=== PATIENT | male | born 2000 | race Caucasian/White ===

== ENCOUNTER 2024-03-22 19:52 | Emergency (ER) | payer OTHER, SELFPAY ==
[2024-03-22] VITALS (10 sets, daily range): BP systolic 120–155; BP diastolic 70–99; PULSE 81–115; RESP 16–18; TEMP 36.6; O2SAT 97–100; BMI 25.4
--- NOTE | 2024-03-22 20:06 | EDS_ITS ---
HPI History of Present Illness Chief Complaint: Lower Extremity Injury PFSH PFS Medical History no medical history Home Medications ?Medication ?Instructions ?Recorded ?Last Taken ?Type NK 03/22/24 Unknown History Allergy/AdvReac Type Severity Reaction Status Date / Time No Known Allergies Allergy Verified 03/22/24 19:53 Surgical History no surgical history Social History Smoking Status: Former smoker EXAM Physical Exam Const Vital Signs: 03/22/24 19:53 Temperature 97.8 F Temperature Source Oral Pulse Rate 81 Respiratory Rate 16 Blood Pressure 133/76 H Blood Pressure Mean 95 Pulse Ox 98 Oxygen Delivery Method Room Air Discharge Plan Triage Chief Complaint: Lower Extremity Injury ED Provider: Yaya Krause Dx/Rx/DC Orders Prescriptions: No Action NK Primary Care Provider: Care Physician,No Primary Referrals: Care Physician,No Primary [Primary Care Provider] - Print Language: Armenian
--- NOTE | 2024-03-22 20:15 | RAD_ITS ---
STUDY: X-RAY - RIGHT ANKLE REASON FOR EXAM: Male, 23 years old. FALL TECHNIQUE: 2 view(s) of the ankle. COMPARISON: None. FINDINGS: There is acute fracture of the medial malleolus of the distal tibia with displacement of 2.1 cm. There is acute comminuted fracture of the distal shaft of the fibula. There is widening of the tibiofibular syndesmosis. Normal visualized talus and calcaneus. The visualized subtalar, talonavicular, calcaneocuboid and tarsal articulations are normal. The soft tissue structures are unremarkable. RAD/Ankle min 3 Views IMPRESSION: Tibia and fibula fractures. Electronically Signed: Tevin Rincon MD at 21:04 EDT ,
--- NOTE | 2024-03-22 20:44 | EX.ED.DYSGE1 ---
HPI History of Present Illness Chief Complaint: Lower Extremity Injury Narrative Narrative: Chief complaint and HPI: 23-year-old male presents for evaluation of right ankle injury. Injury was prior to arrival. Patient states that he does not remember exactly what happened but he states that he was playing volleyball and landed wrong on his right ankle. Immediately had pain and deformity. He denies any blood thinners. Denies any his head. No LOC. Denies any numbness or tingling. Denies pain in any other extremity or body part. Denies any chest pain, shortness of breath, abdominal pain, nausea, vomiting. Review of systems: See HPI Medications: As listed on the chart Allergies: As listed on the chart PFSH: Per chart Vital signs: As listed on the chart. Reviewed. Physical exam: Gen: A&O x3, NAD Head: Normocephalic, atraumatic Eyes: No sclera icterus, conjunctiva clear ENT: Moist mucous membranes Neck: Trachea midline, full range of motion CV: Regular rate Resp: Nonlabored respiration Musc: Full ROM of all extremities except the right lower extremity secondary to pain, obvious deformity to the right ankle with bruising and ecchymosis, sensation intact, good capillary refill, PT/DP pulses plus 2 out of 4 bilaterally Skin: Warm, dry Neuro: Alert, oriented, grossly intact, sensation intact Psych: Cooperative, appropriate mood and affect PFS PFS Medical History no medical history Home Medications ?Medication ?Instructions ?Recorded ?Last Taken ?Type ondansetron 4 mg disintegrating 4 mg PO TID PRN nausea and 03/23/24 Unknown Rx tablet vomiting #21 tabs oxycodone-acetaminophen 5 mg-325 1 tab PO Q6H PRN pain 5 days #20 03/23/24 Unknown Rx mg tablet (Percocet) tabs Allergy/AdvReac Type Severity Reaction Status Date / Time No Known Allergies Allergy Verified 03/22/24 19:53 Surgical History no surgical history Social History Smoking Status: Former smoker EXAM Physical Exam Const Vital Signs: 03/22/24 19:53 03/22/24 20:53 03/22/24 21:00 Temperature 97.8 F Temperature Source Oral Pulse Rate 81 103 H 86 Pulse Rate [1 (Initial Baseline)] Pulse Rate [2] Pulse Rate [3] Respiratory Rate 16 18 18 Respiratory Rate [1 (Initial Baseline)] Respiratory Rate [2] Respiratory Rate [3] Blood Pressure 133/76 H 127/99 H 123/70 H Blood Pressure [1 (Initial Baseline)] Blood Pressure [3] Blood Pressure Mean 95 108 87 Pulse Ox 98 99 98 Oxygen Delivery Method Room Air Room Air Room Air Oxygen Delivery Method [1 (Initial Baseline)] Oxygen Delivery Method [2] Oxygen Delivery Method [3] EtCo2 (Normal 35-45 , high quality CPR 10-20 & ROSC>/=40mmHg EtCo2 (Normal 35-45 , high quality CPR 10-20 & ROSC>/=40mmHg [1 (Initial Baseline)] EtCo2 (Normal 35-45 , high quality CPR 10-20 & ROSC>/=40mmHg [2] EtCo2 (Normal 35-45 , high quality CPR 10-20 & ROSC>/=40mmHg [3] 03/22/24 21:18 03/22/24 22:00 03/22/24 22:05 Temperature 97.9 F Temperature Source Pulse Rate 91 108 H Pulse Rate [1 (Initial Baseline)] Pulse Rate [2] Pulse Rate [3] Respiratory Rate 18 17 Respiratory Rate [1 (Initial Baseline)] Respiratory Rate [2] Respiratory Rate [3] Blood Pressure 155/77 H 128/81 H Blood Pressure [1 (Initial Baseline)] Blood Pressure [3] Blood Pressure Mean 103 Pulse Ox 100 97 Oxygen Delivery Method Room Air Room Air Oxygen Delivery Method [1 (Initial Baseline)] Oxygen Delivery Method [2] Oxygen Delivery Method [3] EtCo2 (Normal 35-45 , high quality CPR 10-20 & ROSC>/=40mmHg 42 38 EtCo2 (Normal 35-45 , high quality CPR 10-20 & ROSC>/=40mmHg [1 (Initial Baseline)] EtCo2 (Normal 35-45 , high quality CPR 10-20 & ROSC>/=40mmHg [2] EtCo2 (Normal 35-45 , high quality CPR 10-20 & ROSC>/=40mmHg [3] 03/22/24 22:06 03/22/24 22:15 03/22/24 22:20 Temperature Temperature Source Pulse Rate Pulse Rate [1 (Initial Baseline)] 108 H Pulse Rate [2] 115 H Pulse Rate [3] 100 Respiratory Rate Respiratory Rate [1 (Initial Baseline)] 17 Respiratory Rate [2] 17 Respiratory Rate [3] 18 Blood Pressure Blood Pressure [1 (Initial Baseline)] 128/81 H Blood Pressure [3] 120/80 Blood Pressure Mean Pulse Ox Oxygen Delivery Method Room Air Room Air Oxygen Delivery Method [1 (Initial Baseline)] Room Air Oxygen Delivery Method [2] Room Air Oxygen Delivery Method [3] Room Air EtCo2 (Normal 35-45 , high quality CPR 10-20 & ROSC>/=40mmHg 40 42 EtCo2 (Normal 35-45 , high quality CPR 10-20 & ROSC>/=40mmHg [1 (Initial Baseline)] 38 EtCo2 (Normal 35-45 , high quality CPR 10-20 & ROSC>/=40mmHg [2] 40 EtCo2 (Normal 35-45 , high quality CPR 10-20 & ROSC>/=40mmHg [3] 40 03/22/24 22:25 03/22/24 23:00 03/23/24 00:00 Temperature Temperature Source Pulse Rate 101 H 101 H Pulse Rate [1 (Initial Baseline)] Pulse Rate [2] Pulse Rate [3] Respiratory Rate 16 18 Respiratory Rate [1 (Initial Baseline)] Respiratory Rate [2] Respiratory Rate [3] Blood Pressure 143/75 H 139/70 H Blood Pressure [1 (Initial Baseline)] Blood Pressure [3] Blood Pressure Mean 97 93 Pulse Ox 98 98 Oxygen Delivery Method Room Air Room Air Oxygen Delivery Method [1 (Initial Baseline)] Oxygen Delivery Method [2] Oxygen Delivery Method [3] EtCo2 (Normal 35-45 , high quality CPR 10-20 & ROSC>/=40mmHg 42 EtCo2 (Normal 35-45 , high quality CPR 10-20 & ROSC>/=40mmHg [1 (Initial Baseline)] EtCo2 (Normal 35-45 , high quality CPR 10-20 & ROSC>/=40mmHg [2] EtCo2 (Normal 35-45 , high quality CPR 10-20 & ROSC>/=40mmHg [3] 03/23/24 01:00 03/23/24 01:21 Temperature 97.9 F Temperature Source Pulse Rate 96 96 Pulse Rate [1 (Initial Baseline)] Pulse Rate [2] Pulse Rate [3] Respiratory Rate 16 18 Respiratory Rate [1 (Initial Baseline)] Respiratory Rate [2] Respiratory Rate [3] Blood Pressure 129/68 H 129/68 H Blood Pressure [1 (Initial Baseline)] Blood Pressure [3] Blood Pressure Mean 88 88 Pulse Ox 98 98 Oxygen Delivery Method Room Air Oxygen Delivery Method [1 (Initial Baseline)] Oxygen Delivery Method [2] Oxygen Delivery Method [3] EtCo2 (Normal 35-45 , high quality CPR 10-20 & ROSC>/=40mmHg EtCo2 (Normal 35-45 , high quality CPR 10-20 & ROSC>/=40mmHg [1 (Initial Baseline)] EtCo2 (Normal 35-45 , high quality CPR 10-20 & ROSC>/=40mmHg [2] EtCo2 (Normal 35-45 , high quality CPR 10-20 & ROSC>/=40mmHg [3] MDM MDM MDM Narrative Medical decision making narrative: 23-year-old male with no significant past medical history presents for evaluation of right ankle injury. See physical exam findings. Concern is for fracture as well as dislocation. X-ray of the right ankle obtained. Morphine and Zofran ordered for symptoms. X-ray shows comminuted fracture of the distal shaft of the fibula as well as medial malleolus. Patient will require procedural sedation for reduction and splinting. Patient tolerated procedural sedation and reduction well. Splint was applied. He remained neurovascularly intact before and after the procedure. Reduction x-rays were ordered and obtained. X-rays show reduction of the fractures. Dr. Renae with orthopedic surgery was contacted and patient was discussed. Plan is for discharge home and follow-up in his office for surgery. He recommends CT lower extremity performed for operative planning. This was ordered. CT of the right ankle shows trimalleolar fracture and overall near anatomic alignment. Patient is stable to discharge home. He was ordered crutches as well as home narcotics and Zofran. Patient was educated on NSAIDs. Patient was educated on elevation as well as ice. He was educated that the splint cannot get wet. He was educated to monitor for signs of compartment syndrome. He was educated that he cannot walk on the extremity. He confirmed understanding of the plan. He was told to follow-up with orthopedic surgery. Diagnostic: Interpreted by me/EM physician: Three-view x-ray of the right ankle shows a comminuted fracture of the distal shaft of the fibula as well as the medial malleolus. Per radiology there is a 2.1 cm displacement as well as widening of the tibiofibular syndesmosis. Three-view x-ray of the right ankle after reduction shows reductions of the fractures with good alignment. Procedural Sedation Consent: Risks, benefits, and alternatives discussed with patient and consent obtained Procedure: Immediately prior to procedure a time out was performed to verify the correct patient, procedure, equipment, passport support associate and site/side marked as required Medication IV: 100 mcg of fentanyl, 80 mg of propofol Complication: Tolerated well without complication. No hypoxic episodes. Time: Total intra-service time with patient was 20 minutes Fracture reduction Indication: Fibula and medial malleolus fracture, right lower extremity Consent: Risks, benefits, and alternatives discussed with patient and consent obtained Procedure: The patient was given procedural sedation. The dislocation was reduced to the best of my abilities utilizing traction technique. Following reduction, immobilization was performed and the extremity's neurovascular status was re-checked and was unchanged from the pre-procedure exam. The patient tolerated the procedure without complications. Splint placement Indication: Fibula and medial malleolus fracture, right lower extremity Consent: Risks, benefits, and alternatives discussed with patient and consent obtained Procedure: The patient was given procedural sedation. The dislocation was reduced to the best of my abilities. Immobilization was performed using Ortho-Glass. Prior to Ortho-Glass/splint placement cotton roll was applied on the extremity. All bony prominences were extra padded. Patient was placed in a sugar-tong as well as posterior splint for stabilization. Zak bandages applied. The extremity's neurovascular status was re-checked and was unchanged from the pre-procedure exam. The patient tolerated the procedure without complications. Impression: 1. Right ankle trimalleolar fracture, status post reduction and splint 2. Mechanical fall Radiography Diagnostic Testing: Clinical Impression(s) from Imaging Studies Ankle X-Ray 03/22/24 20:15 IMPRESSION: Tibia and fibula fractures. Electronically Signed: Tevin Rincon MD at 21:04 EDT , Lower Extremity CT 03/22/24 23:31 IMPRESSION: Trimalleolar fracture in overall near anatomic alignment. Electronically Signed: Tj Birch MD at 0:43 EDT , Discharge Plan Triage Chief Complaint: Lower Extremity Injury ED Provider: Danial Nicole Dx/Rx/DC Orders Clinical Impression: Ankle fracture, right Instructions: ED Ankle Fracture Prescriptions: New oxycodone-acetaminophen [Percocet] 5-325 mg tablet 1 tab PO Q6H PRN (Reason: pain) 5 Days Qty: 20 0RF ondansetron 4 mg tablet,disintegrating 4 mg PO TID PRN (Reason: nausea and vomiting) Qty: 21 0RF Primary Care Provider: Care Physician,No Primary Referrals: Ab Renae MD [Med Staff - Active Staff] - 3-5 Days Activity Restrictions/Additional Instructions: Splint cannot get wet and needs to remain on at all times. Ice and elevation. Follow-up with Dr. Renae. Call the office tomorrow to make an appointment. You are not allowed to walk on your right lower extremity. Print Language: Nepalese Disposition Disposition: Home, Self Care Discharge Date/Time: 03/23/24 01:29
[2024-03-22] MEDS: Morphine 4 MG/ML Syringe IV (21:03)
[2024-03-22] MEDS: Ondansetron 4 MG/2 ML Vial IV (21:03)
[2024-03-22] MEDS: fentaNYL 100 MCG/2 ML Ampul 50 MCG IV ×2 (22:05→22:16)
[2024-03-22] MEDS: Propofol 200 MG/20 ML Vial IV BOLUS (22:06)
--- NOTE | 2024-03-22 22:30 | RAD_ITS ---
STUDY: X-RAY - RIGHT ANKLE REASON FOR EXAM: Male, 23 years old. POST REDUCTION TECHNIQUE: 3 view(s) of the ankle. COMPARISON: Earlier the same day FINDINGS: There is improved alignment of fractures of the distal tibia and fibula. Normal tibiotalar articulation and ankle mortise. Normal visualized talus and calcaneus. The visualized subtalar, talonavicular, calcaneocuboid and tarsal articulations are normal. The soft tissue structures are unremarkable. RAD/Ankle min 3 Views IMPRESSION: Improved alignment of tibia and fibula fractures. Electronically Signed: Tevin Rincon MD at 23:09 EDT ,
--- NOTE | 2024-03-22 23:31 | CT_ITS ---
CT RIGHT LOWER EXTREMITY WITH 3-D IMAGING CLINICAL INDICATION: ANKLE FX TECHNIQUE: Axial CT images of the RIGHT lower extremity was performed without IV contrast material. Coronal and sagittal reformats were provided. The protocol utilizes one or more of the following dose reduction techniques: automated exposure control, adjustment of mA and/or kV according to patient size,and/or use of iterative reconstruction technique. RADIATION DOSAGE (If Supplied By Facility): CTDIvol = ( 15.35 ) mGy, DLP = ( 607.06 ) mGycm COMPARISON: Prior study dated: Left ankle series earlier same date. FINDINGS: Bones: Mildly displaced fracture of the medial malleolus. Nondisplaced fracture of the posterior malleolus. Comminuted fracture of the distal fibula. Fractures are in overall near anatomic alignment. Mortise joint overall anatomically aligned. Soft Tissues: Medial ankle soft tissue swelling. CT/Extremity Lower without Contra IMPRESSION: Trimalleolar fracture in overall near anatomic alignment. Electronically Signed: Tj Birch MD at 0:43 EDT ,
[2024-03-23] VITALS: BP 139/70; PULSE 101; RESP 18; O2SAT 98
[2024-03-23 01:00] VITALS: BP 129/68; PULSE 96; RESP 16; O2SAT 98
[2024-03-23 01:21] VITALS: BP 129/68; PULSE 96; RESP 18; TEMP 36.6; O2SAT 98
== END 2024-03-23 01:29 | disposition home or self-care (01) ==
PROVIDERS: Emergency Provider Surgery; Visit Provider Surgery
DX: S82.851A Displaced trimalleolar fracture of right lower leg, initial encounter for closed fracture (principal); W19.XXXA Unspecified fall, initial encounter; Y93.68 Activity, volleyball (beach) (court); Z87.891 Personal history of nicotine dependence
CPT/HCPCS: 27818; 73610; 73700; 96374; 96375; 96376; 99152; 99285; J7030; A4216; J2405